=== PATIENT | female | born 1995 | race African-American/Black ===

== ENCOUNTER 2017-06-24 14:13 | Emergency (ER) | payer MEDICAID ==
[~2017-06-24] VITALS: Ht 160 cm; Wt 92.9 kg
[2017-06-24 14:16] VITALS: BP 117/82
[2017-06-24 15:52] LABS: HCG UR LOT HCG7030192
[2017-06-24 16:05] LABS: HCG UR OBC PASS
== END 2017-06-24 16:56 | disposition home or self-care (01) ==
LOC: ED 16:50
DX: J20.8 Acute bronchitis due to other specified organisms (principal); B96.89 Other specified bacterial agents as the cause of diseases classified elsewhere; J00 Acute nasopharyngitis [common cold]; F17.210 Nicotine dependence, cigarettes, uncomplicated
CPT/HCPCS: 81025; 93005; 99285

== ENCOUNTER 2017-08-11 18:28 | Emergency (ER) | payer MEDICAID ==
[~2017-08-11] VITALS: Ht 160 cm; Wt 93.4 kg
[2017-08-11 19:21] LABS: BASOPHILS # (AUTO) 0.03 x10^3/uL (0-0.1); BASOPHILS % (AUTO) 0 % (0-1); EOSINOPHILS % (AUTO) 1 % (1-7); LYMPHOCYTES # (AUTO) 2.17 x10^3/uL (1-3.4); LYMPHOCYTES % (AUTO) 14 % (22-44); MD NO; MEAN CORPUSCULAR HEMOGLOBIN 28.2 pg (27.0-34.8); MEAN CORPUSCULAR VOLUME 85.4 fL (80-100); MEAN PLATELET VOLUME 8.5 fL (7.4-10.4); MONOCYTES # (AUTO) 0.93 x10^3/uL (0.2-0.8); MONOCYTES % (AUTO) 6 % (2-9); NEUTROPHILS # (AUTO) 11.89 x10^3/uL (1.8-6.8); NEUTROPHILS % (AUTO) 79 % (42-75); PLATELET COUNT 396 x10^3/uL (130-400); RED BLOOD COUNT 4.83 x10^6/uL (3.82-5.3); RED CELL DISTRIBUTION WIDTH 14.2 % (9.6-15.2)
[2017-08-11 19:33] LABS: ALBUMIN 3.8 g/dL (3.4-5.0); ANION GAP 9 mmol/L (5-15); CALCIUM 8.6 mg/dL (8.5-10.1); CHLORIDE 108 mmol/L (98-107); CREATININE 0.78 mg/dL (0.55-1.02)
[2017-08-11 20:20] LABS: CULTURE INDICATED? YES; MICROSCOPIC INDICATED
[2017-08-11 20:55] LABS: CLUE CELLS NONE SEEN (NONE SEEN); WET PREP WBCS FEW (FEW)
[2017-08-11 21:34] VITALS: BP 122/84
== END 2017-08-11 21:44 | disposition home or self-care (01) ==
LOC: ED 21:38
DX: N93.8 Other specified abnormal uterine and vaginal bleeding (principal); M79.7 Fibromyalgia; R82.99 Other abnormal findings in urine
CPT/HCPCS: 36415; 76830; 80048; 81001; 82040; 84703; 85025; 87086; 87210; 87491; 87591; 87808; 99285

== ENCOUNTER 2018-02-21 08:54 | Emergency (ER) | payer MEDICAID ==
[~2018-02-21] VITALS: Ht 160 cm; Wt 90.0 kg
[2018-02-21] MEDS ORDERED: PREN-3 PO (09:10)
[2018-02-21 09:34] LABS: BASOPHILS # (AUTO) 0.03 x10^3/uL (0-0.1); BASOPHILS % (AUTO) 0 % (0-1); EOSINOPHILS % (AUTO) 1 % (1-7); LYMPHOCYTES % (AUTO) 19 % (22-44); MD NO; MEAN CORPUSCULAR HEMOGLOBIN 27.8 pg (27.0-34.8); MEAN CORPUSCULAR HGB CONC 33.1 g/dL (32.4-35.8); MEAN CORPUSCULAR VOLUME 83.9 fL (80-100); MEAN PLATELET VOLUME 8.7 fL (7.4-10.4); MONOCYTES # (AUTO) 0.42 x10^3/uL (0.2-0.8); MONOCYTES % (AUTO) 3 % (2-9); NEUTROPHILS # (AUTO) 9.51 x10^3/uL (1.8-6.8); NEUTROPHILS % (AUTO) 77 % (42-75); PLATELET COUNT 386 x10^3/uL (130-400); RED BLOOD COUNT 4.77 x10^6/uL (3.82-5.3); RED CELL DISTRIBUTION WIDTH 12.9 % (9.6-15.2)
[2018-02-21 09:45] LABS: ALBUMIN 3.5 g/dL (3.4-5.0); ANION GAP 10 mmol/L (5-15); CALCIUM 8.5 mg/dL (8.5-10.1); CHLORIDE 107 mmol/L (98-107); CREATININE 0.71 mg/dL (0.55-1.02)
[2018-02-21 09:53] LABS: CULTURE INDICATED? YES; MICROSCOPIC INDICATED
[2018-02-21 10:27] VITALS: BP 101/70
== END 2018-02-21 12:02 | disposition home or self-care (01) ==
LOC: ED 11:23
DX: O03.4 Incomplete spontaneous abortion without complication (principal); R82.99 Other abnormal findings in urine; Z32.01 Encounter for pregnancy test, result positive; Z3A.09 9 weeks gestation of pregnancy
CPT/HCPCS: 36415; 76801; 80048; 81001; 82040; 84702; 85025; 86901; 87086; 99285

== ENCOUNTER 2019-02-15 00:40 | Emergency (ER) | payer MEDICAID ==
[~2019-02-15] VITALS: Ht 160 cm; Wt 86.7 kg
[2019-02-15 02:47] VITALS: BP 120/74
== END 2019-02-15 02:50 | disposition home or self-care (01) ==
LOC: ED 00:52
DX: R07.89 Other chest pain (principal); F31.9 Bipolar disorder, unspecified; F17.200 Nicotine dependence, unspecified, uncomplicated
CPT/HCPCS: 36415; 71046; 80053; 84484; 85025; 85379; 93005; 96374; 99284; J1885

== ENCOUNTER 2019-10-21 19:48 | Emergency (ER) | payer MEDICAID ==
[~2019-10-21 19:48] MED LIST: PREN-3 PO
--- NOTE | 2019-10-21 20:25 | NUR ---
pt to room from lobby
--- NOTE | 2019-10-21 20:45 | NUR ---
LATE ENTRY: PT CAME IN CO OF LUQ ABD PAIN STARTING TODAY. PT SAYS SHE VOMITTED "WHITE STUFF" ONCE TODAY. PT IS 19 WEEKS . PT DENIES VAGINAL DISCHARGE.
[2019-10-21 21:05] LABS: MICROSCOPIC INDICATED
[2019-10-21 21:10] LABS: ALANINE AMINOTRANSFERASE 13 U/L (12-78); ANION GAP 7 mmol/L (5-15); CALCIUM 8.4 mg/dL (8.5-10.1); CHLORIDE 110 mmol/L (98-107); CREATININE 0.52 mg/dL (0.55-1.02)
[2019-10-21 21:11] LABS: CULTURE INDICATED? NO
[2019-10-21 21:16] LABS: MEAN CORPUSCULAR HEMOGLOBIN 28.6 pg (27.0-34.8); MEAN CORPUSCULAR HGB CONC 33.2 g/dL (32.4-35.8); MEAN CORPUSCULAR VOLUME 86.1 fL (80-100); MEAN PLATELET VOLUME 8.9 fL (7.4-10.4); PLATELET COUNT 293 x10^3/uL (130-400); RED BLOOD COUNT 4.41 x10^6/uL (3.82-5.3); RED CELL DISTRIBUTION WIDTH 13.5 % (9.6-15.2)
[2019-10-21 21:27] LABS: ALKALINE PHOSPHATASE 44 U/L (45-117); BILIRUBIN,TOTAL < 0.1 mg/dL (0.2-1.0); TOTAL PROTEIN 7.2 g/dL (6.4-8.2)
[2019-10-21 21:44] LABS: MD YES
[2019-10-21 21:50] VITALS: BP 109/59
--- NOTE | 2019-10-21 21:52 | NUR ---
PT RESTING IN [facility]. NAD. VSS. BLANKET PROVIDED.
[2019-10-21 21:58] LABS: BASOS#(MANUAL) 0.12 x10^3/uL (0-0.1); BASOS% (MANUAL) 1 % (0-1); EOS#(MANUAL) 0.12 x10^3/uL (0.0-0.4); EOS% (MANUAL) 1 % (1-7); LYMPH#(MANUAL) 2.24 x10^3/uL (1-3.4); LYMPHS% (MANUAL) 19 % (22-44); MONOS#(MANUAL) 0.24 x10^3/uL (0.3-2.7); MONOS% (MANUAL) 2 % (2-9); REACTIVE LYMPHS # (MANUAL) 0.59 x10^3/uL (0-0); REACTIVE LYMPHS % (MANUAL) 5 % (0-0); SEGS% (MANUAL) 72 % (42-75)
[2019-10-21 21:59] LABS: <PLATELET ESTIMATE> ADEQUATE; LARGE PLATELETS 1+; OVALOCYTES 1+; TOXIC GRAN 1+
== END 2019-10-21 22:51 | disposition home or self-care (01) ==
LOC: ED 20:45
DX: O26.892 Other specified pregnancy related conditions, second trimester (principal); R10.32 Left lower quadrant pain; R10.12 Left upper quadrant pain; R11.2 Nausea with vomiting, unspecified; Z3A.19 19 weeks gestation of pregnancy
CPT/HCPCS: 36415; 76805; 80053; 81001; 83690; 84702; 85025; 99284